=== PATIENT | male | born 1975 | race Caucasian/White ===

== ENCOUNTER 2017-06-13 07:10 | Emergency (ER) | payer BC ==
[2017-06-13 07:39] VITALS: BP 126/82
--- NOTE | 2017-06-13 07:50 | UC ---
Throat Pain/Nasal Arun HPI - HPI Summary HPI Summary: 42 yo male currently on prophylatic tamiflu presents with sore throat no f/c mild cough no lopes no myalgias - History of Current Complaint Chief Complaint: UCRespiratory Stated Complaint: COUGH, SORE THROAT Time Seen by Provider: 06/13/17 07:36 Hx Obtained From: Patient Onset/Duration: Gradual Onset Severity: Mild Pain Intensity: 4 Pain Scale Used: 0-10 Numeric - Epiglottits Risk Factors Epiglottis Risk Factors: Negative - Allergies/Home Medications Allergies/Adverse Reactions: Allergies Allergy/AdvReac Type Severity Reaction Status Date / Time No Known Allergies Allergy Verified 06/13/17 07:36 Home Medications: Home Medications Oseltamivir CAP* [Tamiflu CAP*] 75 mg PO DAILY 06/13/17 [History Confirmed 06/13] PMH/Surg Hx/FS Hx/Imm Hx Previously Healthy: Yes - Surgical History Surgical History: Yes Surgery Procedure, Year, and Place: HERNIA REPAIR 10 YRS AGO, LASIK EYE SUREGRY 8 YRS AGO; VASECTOMY 6 YEARS AGO - Family History Known Family History: Positive: Hypertension - Social History Alcohol Use: Daily Substance Use Type: None Smoking Status (MU): Never Smoked Tobacco - Immunization History Most Recent Influenza Vaccination: 02/06 Review of Systems Constitutional: Negative Skin: Negative Eyes: Negative ENT: Sore Throat Respiratory: Cough Cardiovascular: Negative Gastrointestinal: Negative Genitourinary: Negative Motor: Negative Neurovascular: Negative Musculoskeletal: Negative Neurological: Negative Psychological: Negative Is Patient Immunocompromised?: No All Other Systems Reviewed And Are Negative: Yes Physical Exam Triage Information Reviewed: Yes Appearance: Well-Appearing, No Pain Distress, Well-Nourished Vital Signs: Initial Vital Signs Temp 99 F 06/13/17 07:34 Pulse 78 06/13/17 07:34 Resp 16 06/13/17 07:34 BP 126/82 06/13/17 07:34 Pulse Ox 98 06/13/17 07:34 Vital Signs Reviewed: Yes Eyes: Positive: Conjunctiva Clear ENT: Positive: Hearing grossly normal, Pharyngeal erythema, TMs normal, Uvula midline. Negative: Nasal congestion, Nasal drainage, Tonsillar swelling, Tonsillar exudate, Trismus, Muffled voice, Hoarse voice, Dental tenderness, Sinus tenderness Dental Exam: Normal Neck: Positive: Supple, Nontender, No Lymphadenopathy Respiratory: Positive: Lungs clear, Normal breath sounds, No respiratory distress Cardiovascular: Positive: RRR, No Murmur Abdominal Exam: Normal Musculoskeletal: Positive: ROM Intact, No Edema Neurological: Positive: Alert Skin Exam: Normal Throat Pain/Nasal Course/Dx - Course Course Of Treatment: strep (-) - Differential Dx/Diagnosis Provider Diagnoses: pharyngitis Discharge - Discharge Plan Condition: Stable Disposition: HOME Referrals: Chintan Kauffman MD [Primary Care Provider] -
== END 2017-06-13 08:15 | disposition home or self-care (01) ==
LOC: UCCORT 07:10
DX: J02.9 Acute pharyngitis, unspecified (principal); R05 Cough
CPT/HCPCS: 87651; 99211; G0463

== ENCOUNTER 2017-07-26 11:42 | Emergency (ER) | payer BC ==
[2017-07-26 12:15] VITALS: BP 145/93
--- NOTE | 2017-07-26 12:24 | UC ---
Hand/Wrist HPI - HPI Summary HPI Summary: pain left hand / left pinky x 2 hrs injury to his left 5th finger as hes was trying to lift his daughter using only his pinky sudden onset pain , swelling, and bruising , pt. head a pop - History Of Current Complaint Chief Complaint: UCUpperExtremity Stated Complaint: LFT HAND INJURY Time Seen by Provider: 07/26/17 12:13 Hx Obtained From: Patient Onset/Duration: Sudden Onset, Lasting Hours - 2, Still Present Severity Initially: Moderate Severity Currently: Moderate Pain Intensity: 1 Character Of Pain: Aching Aggravating Factor(s): Movement Alleviating Factor(s): Nothing Associated Signs And Symptoms: Positive: Swelling, Bruising, Weakness - Allergies/Home Medications Allergies/Adverse Reactions: Allergies Allergy/AdvReac Type Severity Reaction Status Date / Time No Known Allergies Allergy Verified 07/26/17 12:09 Home Medications: Home Medications L.acidoph,Paracasei, B.lactis [Probiotic] 1 tab PO DAILY 07/26/17 [History Confirmed 07/26/17] Magnesium Oxide [Magnesium] 1 tab PO DAILY 07/26/17 [History Confirmed 07/26/17] Melatonin/Pyridoxine HCl (B6) [Melatonin 5 mg Tablet] 5 mg PO BEDTIME 07/26/17 [ History Confirmed 07/26/17] Multivitamin [Multivitamins] 1 tab PO DAILY 07/26/17 [History Confirmed 07/26/17 ] PMH/Surg Hx/FS Hx/Imm Hx Previously Healthy: Yes - Surgical History Surgical History: Yes Surgery Procedure, Year, and Place: HERNIA REPAIR 10 YRS AGO, LASIK EYE SUREGRY 8 YRS AGO; VASECTOMY 6 YEARS AGO - Family History Known Family History: Positive: Hypertension - Social History Alcohol Use: Daily Substance Use Type: None Smoking Status (MU): Never Smoked Tobacco - Immunization History Most Recent Influenza Vaccination: 02/06 Review of Systems Constitutional: Negative Skin: Negative Eyes: Negative ENT: Negative Respiratory: Negative Is Patient Immunocompromised?: No All Other Systems Reviewed And Are Negative: Yes Physical Exam Triage Information Reviewed: Yes Appearance: Well-Appearing, No Pain Distress, Well-Nourished Vital Signs: Initial Vital Signs Temp 99.0 F 07/26/17 12:11 Pulse 78 07/26/17 12:11 Resp 16 07/26/17 12:11 BP 145/93 07/26/17 12:11 Pulse Ox 96 07/26/17 12:11 Vital Signs Reviewed: Yes Eyes: Positive: Conjunctiva Clear ENT: Positive: Normal ENT inspection, Hearing grossly normal, Pharynx normal Neck: Positive: Supple, Nontender, No Lymphadenopathy Respiratory: Positive: Chest non-tender, Lungs clear, Normal breath sounds Cardiovascular: Positive: RRR, No Murmur, Pulses Normal Musculoskeletal: Positive: Other: - left hand / left 5th finger : + swelling and bruising along the 5th metacarpal area, + diffuse tenderness, limited ROM on flexion and extension of the left pinky , limited strength on extension of the finger Diagnostics - Laboratory Diagnostic Studies Completed/Ordered: xray left hand: MPRESSION: OBLIQUE SLIGHTLY DISPLACED FRACTURE OF THE FIFTH METACARPAL Hand/Wrist Course/Dx - Differential Dx/Diagnosis Provider Diagnoses: fracture left 5th metacarpal Discharge - Sign-Out/Discharge Documenting (check all that apply): Discharge - Discharge Plan Condition: Stable Disposition: HOME Patient Education Materials: Hand Fracture (ED) Referrals: Chintan Kauffman MD [Primary Care Provider] - Elia Resendez MD [Medical Doctor] - As Soon As Possible - Billing Disposition and Condition Condition: STABLE Disposition: HOME
--- NOTE | 2017-07-26 12:40 | RAD ---
HISTORY: Left hand pain COMPARISONS: None VIEWS: 4, Frontal, lateral, and oblique views of the left hand FINDINGS: BONE DENSITY: Normal. BONES: There is an oblique, slightly displaced fracture of the fifth metacarpal. JOINTS: There is no arthropathy. ALIGNMENT: There is no dislocation. SOFT TISSUES: Unremarkable. OTHER FINDINGS: None. IMPRESSION: OBLIQUE SLIGHTLY DISPLACED FRACTURE OF THE FIFTH METACARPAL
== END 2017-07-26 13:11 | disposition home or self-care (01) ==
LOC: UCCORT 11:42
DX: S62.307A Unspecified fracture of fifth metacarpal bone, left hand, initial encounter for closed fracture (principal); X50.0XXA Overexertion from strenuous movement or load, initial encounter; Y93.89 Activity, other specified; Y92.9 Unspecified place or not applicable
CPT/HCPCS: 99211; G0463

== ENCOUNTER 2017-08-02 14:44 | Day surgery (SDC) | payer BC ==
[~2017-08-02 14:44] MED LIST: Buffered Lidocaine 0.9% SYRIN* 5 ML/SYR SYRINGE INTRADERM ONE; Bupivacaine 0.25% SDV* 30 ML ONE
[2017-08-02] MEDS ORDERED: ceFAZolin 2 GM PREMIX (*) 2 GM/50 ML BAG IVPB ONE (14:47)
[2017-08-02] MEDS ORDERED: Buffered Lidocaine 0.9% SYRIN* 5 ML/SYR SYRINGE ONE (14:47)
[2017-08-02] MEDS ORDERED: fentaNYL* 50 MCG/ML 2 ML VIAL (100 MCG VIAL) ONE ×4 (15:26→17:52)
[2017-08-02] MEDS ORDERED: Midazolam* 1 MG/ML 2 ML VIAL (2 MG) ONE (15:27)
[2017-08-02] MEDS ORDERED: Propofol* 10 MG/ML 20 ML BTL IV PUSH ONE (15:28)
[2017-08-02] MEDS ORDERED: Dexamethasone IV* 4 MG/ML 1 ML (4 MG) ONE (15:28)
[2017-08-02] MEDS ORDERED: Famotidine IV* 10 MG/ML 2 ML (20 mg) ONE (15:28)
[2017-08-02] MEDS ORDERED: Lidocaine 2% PF * 5 ML VIAL ONE (15:28)
[2017-08-02] MEDS ORDERED: Ketorolac INJ* 30 MG/ML 1 ML VIAL ONE (15:28)
[2017-08-02] MEDS ORDERED: PROCHLORPERAZINE INJ 5 MG/ML 2 ML VIAL IV PRN (15:59)
[2017-08-02] MEDS ORDERED: Acetaminophen TAB* 325 MG PO PRN (15:59)
[2017-08-02] MEDS ORDERED: Naloxone* 0.4 MG/ML 1 ML VIAL IV PRN (15:59)
[2017-08-02] MEDS ORDERED: Ondansetron ODT TAB* 4 MG PO PRN (15:59)
[2017-08-02] MEDS ORDERED: HYDROcodone/ACETAMIN 5-325 MG* 1 TAB PO PRN ×2 (15:59)
[2017-08-02] MEDS ORDERED: DiMENhydriNATE IV* 50 MG/ML VIAL IV PUSH PRN (15:59)
[2017-08-02] MEDS ORDERED: HYDROcodone/ACETAMIN 5-325 MG* 1 TAB ONE (17:32)
[2017-08-02] MEDS: fentaNYL* 50 MCG/ML 2 ML VIAL (100 MCG VIAL) IV PRN ×4 (17:36→17:59)
[2017-08-02 19:08] VITALS: BP 128/79
--- NOTE | 2017-08-03 12:19 | RAD ---
INDICATION: Left hand fifth metacarpal arthroplasty, left fifth metacarpal fracture, trauma COMPARISONS: July 26, 2017 TECHNIQUE: Fluoroscopy was provided for a surgical procedure. Total fluoroscopy time is: 9 seconds FINDINGS: Spot images demonstrate internal fixation of the fifth metacarpal. IMPRESSION: FLUOROSCOPY WAS PROVIDED FOR A SURGICAL PROCEDURE CPT II Codes: G9500
--- NOTE | 2017-08-06 12:54 | OP ---
OPERATIVE REPORT: DATE OF OPERATION: 08/02/17 DATE OF : 71 SURGEON: Wm Mancia MD ELECTRICAL LINE MECHANIC: KAIT Clark ANESTHESIA: General. PRE-OP DIAGNOSIS: Left fifth displaced metacarpal shaft fracture. POST-OP DIAGNOSIS: Left fifth displaced metacarpal shaft fracture. OPERATIVE PROCEDURE: Open reduction internal fixation of left fifth metacarpal fracture. INDICATIONS: Philip has displaced fifth metacarpal fracture with quite a bit of shortening. It wa s an oblique fracture. Given the extent of shortening, I did recommend open reduction internal fixat ion. We talked about risks and benefits including risks of stiffness, risks of hardware irritation n ecessitating hardware removal. He wanted to proceed with surgery. ESTIMATED BLOOD LOSS: 2 mL. COMPLICATIONS: None. FINDINGS: There was a nondisplaced crack through the more proximal metacarpal that was encountered i ntraoperatively and secured as well. DESCRIPTION OF PROCEDURE: Mr. Gaytan was seen in the preoperative holding area and the correct site , side, and procedure were identified. He came back to the operating room where the arm was pre-scru bbed and then prepped and draped in the usual fashion. A time-out was performed. I exsanguinated the arm with the Esmarch and the tourniquet was inflated to 250 mmHg. I then made a longitudinal incision over the dorsal aspect of the fifth metacarpal. The dissection was carried gail n in the interval between the fourth and fifth dorsal compartments, was utilized to expose the perios teum dorsally. This was incised longitudinally and subperiosteal flaps were raised to expose the fra cture. I then used a combination of the curette, the rongeur, the irrigation and suction to debride the fracture hematoma. The fracture was mobilized, reduced, and clamped into place with the point-of -reduction clamp. I then placed two 1.3-mm lag screws across the distal oblique fracture. These gen erated excellent compression and anatomic reduction was secured. I then selected a 1.5-mm T-plate of the [employer] variable angle hand set. This was clamped into place. I placed the distal screws and t hen proximally I went to place shaft screws. However, there was no real bite on the far cortex. I, therefore, brought in the C-arm and identified a spiral oblique fracture line extending down towards the base of the metacarpal. The proximal screws were withdrawn. I then placed two 1.3-mm lag screws to secure the split in the metacarpal. Once these were placed, I went ahead and brought back in my p late and secured the plate in place with combination of variable angle locking screws and cortical sc rews. The alignment was anatomic clinically. I also did on the mini C-arm fluoroscopy. The fingers were in very nice alignment. We therefore irrigated out the wound. The periosteum was closed over the plate in its entirety with 4-0 Prolene suture. The split in the tendon was repaired with a coupl e of [id number] 4-0 Prolene sutures with the knots buried. The skin was closed with 4-0 Monocry l and Steri-Strips. The wound was infiltrated with 0.25% plain Marcaine. The wound was dressed with Xeroform, 4x4's, sterile Webril, and an ulnar gutter splint was applied with the hand in the protect ed position. He was then awoken up and taken to the recovery room in stable condition. [id number]/[facility] #: [id number]
== END 2017-08-02 19:09 | disposition home or self-care (01) ==
LOC: OR 14:44
PROVIDERS: ATTEND Orthopaedic Surgery Hand Surgery
DX: S62.327A Displaced fracture of shaft of fifth metacarpal bone, left hand, initial encounter for closed fracture (principal); F41.9 Anxiety disorder, unspecified; X50.0XXA Overexertion from strenuous movement or load, initial encounter; Y92.9 Unspecified place or not applicable
CPT/HCPCS: 76000; C1713; C1776; J0690; J1100; J1885; J2250; J2704; J3010